=== PATIENT | female | born 1980 | race Caucasian/White ===

== ENCOUNTER → 2019-05-18 17:18 | Outpatient (CLI) | payer BC, SELFPAY ==
--- NOTE | ~2019-05-18 | MM_ITS ---
EXAMINATION: MM screening michelle BI w elisabeth HISTORY: Screening mammogram TECHNIQUE: Craniocaudal and mediolateral oblique 3-D tomosynthesis images were obtained and synthetic 2-D images were generated. CAD analysis was submitted and interpreted. COMPARISON: 12/13/2017, 10/19/2016, 09/13/2015 bilateral digital screening mammogram examinations BREAST PARENCHYMAL COMPOSITION: The breasts are heterogeneously dense, which may obscure small masses . FINDINGS: There is no evidence of suspicious mass, calcification, or architectural distortion to sugg est malignancy in either breast. There has been no suspicious interval change. IMPRESSION: 1. No mammographic evidence of malignancy. 2. Recommend routine screening mammography in one year. BI-RADS Category 1: Negative Reviewed, dictated and finalized at location A. RTISEMENT COMPOSITOR
== END ==
PROVIDERS: PCP Family Medicine; Visit Provider Family Medicine
DX: Z12.31 Encounter for screening mammogram for malignant neoplasm of breast (principal)
CPT/HCPCS: 77063; 77067

== ENCOUNTER → 2020-05-31 11:25 | Outpatient (CLI) | payer BC, SELFPAY ==
--- NOTE | ~2020-05-31 | MM_ITS ---
EXAMINATION: MM screening michelle BI w elisabeth HISTORY: Screening mammogram, family history of breast cancer in her mother. TECHNIQUE: Craniocaudal and mediolateral oblique 3-D tomosynthesis images were obtained and synthetic 2-D images were generated. CAD analysis was submitted and interpreted. COMPARISON: 03/17/2020, 12/13/2017, 10/17/2016 BREAST PARENCHYMAL COMPOSITION: The breasts are heterogeneously dense, which may obscure small masses . FINDINGS: RIGHT BREAST: There are indeterminate calcifications in the middle third of the upper, slightly outer breast. LEFT BREAST: There is a possible mass in the middle third of the outer breast 5 cm from the nipple. IMPRESSION: 1. Bilateral breast findings as described above. 2. Additional mammographic views and possible breast ultrasound are recommended. BI-RADS Category 0: Incomplete: Needs additional imaging evaluation. Reviewed, dictated and finalized at location A. DEVELOPER IMPRESSION: 1. Bilateral breast findings as described above. 2. Additional mammographic views and possible breast ultrasound are recommended . BI-RADS Category 0: Incomplete: Needs additional imaging evaluation.
== END ==
PROVIDERS: PCP Family Medicine; Visit Provider Family Medicine
DX: Z12.31 Encounter for screening mammogram for malignant neoplasm of breast (principal); R92.8 Other abnormal and inconclusive findings on diagnostic imaging of breast
CPT/HCPCS: 77063; 77067

== ENCOUNTER → 2020-06-22 09:26 | Outpatient (CLI) | payer BC, SELFPAY ==
--- NOTE | ~2020-06-22 | MMUS_ITS ---
EXAMINATION: MM diagnostic mammo BI, US breast LT complete HISTORY: Follow-up right breast calcifications and left breast asymmetry TECHNIQUE: Additional 3-D tomosynthesis images of the breasts were performed and synthetic 2-D images were generated. CAD analysis was submitted and interpreted. High resolution complete left breast ult rasound was performed. COMPARISON: 03/30/2021 BREAST PARENCHYMAL COMPOSITION: The breasts are heterogenously dense, which may obscure small masses. FINDINGS: MAMMOGRAPHIC FINDINGS: Right breast calcifications are likely benign and monomorphic, upper outer quadrant. There are no dis crete masses, calcifications or architectural distortion in the left breast. ULTRASOUND: Complete left breast ultrasound: At 9:00, 4 cm from the nipple, there is a 4 mm intramammary lymph no de. No other discrete mass identified. IMPRESSION: 1. Probable benign right breast calcifications. No evidence for malignancy in the left breast. 2. Recommend 6 month follow-up diagnostic right mammogram BI-RADS category 3, probably benign findings. Reviewed, dictated and finalized at location A. IMPRESSION: 1. Probable benign right breast calcifications. No evidence for malignancy in t he left breast. 2. Recommend 6 month follow-up diagnostic right mammogram BI-RADS category 3, probably benign findings.
== END ==
PROVIDERS: PCP Family Medicine; Visit Provider Nurse Practitioner
DX: R92.8 Other abnormal and inconclusive findings on diagnostic imaging of breast (principal)
CPT/HCPCS: 76641; 77066

== ENCOUNTER 2020-11-04 20:38 | Emergency (ER) | payer BC, SELFPAY ==
--- NOTE | ~2020-11-04 | XR_ITS ---
EXAMINATION: XR chest 2V DATE: 11/04/2020 21:24 INDICATION: Chest pain, tachycardia TECHNIQUE: PA and lateral views of the chest are obtained. COMPARISON: None available FINDINGS: The lungs are free of acute opacities. There is no pleural effusion or pneumothorax. The ca rdiomediastinal silhouette is normal. There is mild S-shaped curvature of the spine. IMPRESSION: 1. No acute cardiopulmonary abnormality. Reviewed, dictated and finalized at location A.
[2020-11-04 20:43] VITALS: BP 131/72; PULSE 77; RESP 16; TEMP 36.8; O2SAT 100
--- NOTE | 2020-11-04 20:46 | ECG_ITS ---
Measurements Intervals Sophia Rate: 75 P: 74 PA: 131 QRS: 75 QRSD: 83 T: 59 QT: 378 QTc: 425 Interpretive Statements SINUS RHYTHM INCOMPLETE RIGHT BUNDLE BRANCH BLOCK BORDERLINE ST ABNORMALITY- ANTERIOR LEADS BORDERLINE ECG Electronically Signed On 11-05-2020 7:05:13 CDT by Indio Holley D.O.
[2020-11-04 21:05] LABS: Basophils Absolute Auto 0.1 K/mm3 (0.0-0.1); Basophils Percent Auto 1.1 % (0.2-1.2); Eosinophils Absolute Auto 0.3 K/mm3 (0-0.3); Eosinophils Percent Auto 4.3 % (0-4.4); Hematocrit 41.4 % (37.0-47.0); Hemoglobin 13.5 g/dL (12.0-15.0); Immature Granulocyte Absolute 0.02 K/mm3 (0.00-0.031); Immature Granulocyte Percent A 0.3 % (0-0.5); Lymphocytes Absolute Auto 2.16 K/mm3 (0.9-3.2); Lymphocytes Percent Auto 32.9 % (18.3-44.2); Mean Corpuscular HGB Conc 32.6 g/dl (32-36); Mean Corpuscular Volume 88.8 fl (80-100); Mean Platelet Volume 10.8 fl (7.4-10.4); Monocytes Absolute Auto 0.5 K/mm3 (0.1-0.6); Monocytes Percent Auto 6.8 % (2.6-8.5); Neutrophils Absolute Auto 3.6 K/mm3 (1.3-6.7); Neutrophils Percent Auto 54.6 % (45.5-73.1); Platelet Count Result 233 k/mm3 (150-375); Red Blood Count 4.66 M/mm3 (4.2-5.4); Red Cell Distribution Width 12.3 % (11.5-14.5); White Blood Count 6.6 K/mm3 (4.5-10.0)
[2020-11-04 21:14] LABS: INR 0.9; Prothrombin Time 11.8 Seconds (11.1-14.7)
[2020-11-04 21:15] LABS: Anion Gap 9 mmol/L (8-16); Blood Urea Nitrogen 11 mg/dL (7-17); Carbon Dioxide 24 mmol/L (22-30); Chloride 108 mmol/L (98-107); Estimated CRCL calculation 88 ml/min; Estimated Glomerular Filt Rate > 60; Glucose 117 mg/dL (65-110); Partial Thromboplastin Time 32.7 SECONDS (22.3-36.8); Potassium 3.6 mmol/L (3.4-5.0); Sodium 141 mmol/L (137-145)
[2020-11-04 21:27] LABS: Troponin I < 0.012 ng/mL (0.000-0.034)
[2020-11-04 22:31] VITALS: BP 122/82; PULSE 81; RESP 17; O2SAT 96
--- NOTE | 2020-11-04 22:32 | ED.CHESTPAIN ---
HPI - Chest Pain History of Present Illness HPI narrative: 40 yo female w/ h/o aortic valvular insufficiency, psoriasis presents to the ED for chest tightness. About 30 minutes prior to arrival she noted some mild chest tightness, SOB. Her heart then began to race and she devloped mild dizziness. Symptoms have mostly passed at the time of my evlauation, but she says that she still feels a little off. No prior episodes. Related Data Home Medications Medication Instructions Recorded Confirmed clobetasol 0.05 % topical cream 1 applic TOPICAL DAILY PRN 09/07/20 09/13/20 [id number]-iron 18 tablet PO 09/07/20 09/13/20 mg-FA 400 mcg-vit K 25 mcg tablet Allergies Allergy/AdvReac Type Severity Reaction Status Date / Time No Known Allergies Allergy Verified 11/04/20 20:43 Review of Systems Review of Systems: All systems reviewed & are unremarkable except as noted in HPI and below Constitutional: Constitutional: Denies fever(s) Eyes: Eyes: Reports no additional eye complaints ENT: Reports dizziness Cardiovascular: Cardiovascular: Reports as per HPI Respiratory: Respiratory: Reports as per HPI Gastrointestinal: Gastrointestinal: Denies nausea and Denies vomiting Genitourinary: Genitourinary: Reports no additional female genitourinary complaints Musculoskeletal: Musculoskeletal: Denies back pain Neurologic: Denies confusion, Reports dizziness and Denies weakness [facility] Past Medical History Medical History Aortic valve insufficiency Interstitial cystitis Psoriasis Vaginal delivery x1 Family History Family History Grandparent Diabetes mellitus Family history of malignant neoplasm of breast Mother Family history of malignant neoplasm of cervix Family history of malignant neoplasm of breast in first degree relative Social History Social History Smoking status: Former smoker Smoking end date: 04/07/02 Alcohol intake: current Substance use: unknown Gender identity (if verbalized by the patient): Female Exam Const: General: healthy appearing, no acute distress and alert Orientation/consciousness: patient oriented x3 HENMT: Head: normal to inspection Neck: Neck: normal visual inspection Chest: Chest palpation & inspection: no tenderness Resp: Effort & Inspection: normal respiratory effort Auscultation: clear to auscultation bilaterally, no rales, no rhonchi and no wheezes Cardio: Jugular venous distension: no JVD Rate: regular rate Rhythm: regular rhythm Heart sounds: no murmurs GI: Inspection: non-distended GI Palp: Yes Soft to palpation and No Tenderness to palpation present (GI) Skin: General skin exam: normal color Neuro: General: patient oriented x3 and moves all extremities Speech: normal speech Extrem: General: no edema Psych: Appearance: well kempt Affect: normal affect Course Vital Signs Vital signs: Vital Signs Temperature 36.8 C 11/04/20 20:43 Pulse Rate 77 11/04/20 20:43 Respiratory Rate 16 11/04/20 20:43 Blood Pressure 131/72 11/04/20 20:43 Pulse Oximetry 100 11/04/20 20:43 Temperature 36.8 C 11/04/20 20:43 Pulse Rate 88 11/05/20 01:12 Respiratory Rate 18 11/05/20 01:12 Blood Pressure 124/71 11/05/20 01:12 Pulse Oximetry 99 11/05/20 01:12 MDM - Chest Pain MDM Narrative Medical decision making narrative: She did not have any significant pain. What she did have was more pleuritic than cardiac in nature. No acute changes on EKG. troponin negative. X-ray negative. Heart score 0. Medical Records Data Attestation: I reviewed the patient's medical records. Lab Data Attestation: I reviewed the patient's lab results. Result diagrams: 11/04/20 21:00 11/04/20 21:00 Labs: Lab Results 11/04/20 11/04/20
[2020-11-04] MEDS: ONDANSETRON HCL ODT 4 MG TABLET PO (22:37)
[2020-11-04] MEDS: PROMETHAZINE HCL 25 MG/ML AMPUL IM (23:35)
[2020-11-05 00:10] VITALS: BP 117/71; PULSE 69; RESP 17; O2SAT 97
[2020-11-05 01:12] VITALS: BP 124/71; PULSE 88; RESP 18; O2SAT 99
== END 2020-11-05 01:12 | disposition home or self-care (01) ==
PROVIDERS: Emergency Medicine; Emergency Provider Emergency Medicine; PCP Family Medicine
DX: R07.89 Other chest pain (principal); R00.2 Palpitations; I35.1 Nonrheumatic aortic (valve) insufficiency; L40.9 Psoriasis, unspecified; Z87.891 Personal history of nicotine dependence; I45.10 Unspecified right bundle-branch block; R94.31 Abnormal electrocardiogram [ECG] [EKG]
CPT/HCPCS: 36415; 71046; 80048; 84484; 85025; 85610; 85730; 93005; 96372; 99284; A9270; J2550

== ENCOUNTER → 2021-01-16 14:27 | Outpatient (CLI) | payer BC, SELFPAY ==
--- NOTE | ~2021-01-16 | MM_ITS ---
EXAMINATION: MM diagnostic michelle RT w elisabeth HISTORY: Follow-up right breast calcifications TECHNIQUE: Additional 3-D tomosynthesis images of the right breast were performed and synthetic 2-D i mages were generated. CAD analysis was submitted and interpreted. COMPARISON: Comparison to multiple prior studies sequentially, with oldest reviewed study dated 11/2015. BREAST PARENCHYMAL COMPOSITION: The breasts are heterogenously dense, which may obscure small masses. FINDINGS: There is a cluster of calcifications in the upper outer quadrant of the right breast which are likely benign. No significant interval change. There are no suspicious masses or architectural di stortion. IMPRESSION: 1. Stable likely benign right breast calcifications, upper outer quadrant. 2. Recommend 6 month follow-up diagnostic mammogram. BI-RADS category 3, probably benign findings. Reviewed, dictated and finalized at location A.
== END ==
PROVIDERS: PCP Family Medicine; Visit Provider Family Medicine
DX: R92.1 Mammographic calcification found on diagnostic imaging of breast (principal); R92.8 Other abnormal and inconclusive findings on diagnostic imaging of breast
CPT/HCPCS: 77061; 77065; G0279

== ENCOUNTER → 2021-07-26 08:29 | Outpatient (CLI) | payer BC, SELFPAY ==
--- NOTE | ~2021-07-26 | MM_ITS ---
EXAMINATION: MM diagnostic michelle BI w elisabeth HISTORY: Right breast calcifications TECHNIQUE: ML, MLO and craniocaudal 3-D tomosynthesis images of both breasts were performed and synth etic 2-D images were generated. CAD analysis was submitted and interpreted. COMPARISON: 01/16/2021 right diagnostic mammogram 06/22/2020 bilateral diagnostic mammogram and complete left breast ultrasound 06/24/2020, , 12/13/2017bilateral screening mammogram examinations BREAST PARENCHYMAL COMPOSITION: The breasts are heterogeneously dense, which may obscure small masses . FINDINGS: No suspicious mass or architectural distortion, malignant calcification, skin thickening or retraction or significant new or developing density is detected. Minimal benign calcification of ea ch breast. IMPRESSION: 1. No mammographic evidence of malignancy 2. Routine annual mammographic screening is recommended. BI-RADS Category 1: Negative Reviewed, dictated and finalized at location A.
== END ==
PROVIDERS: PCP Family Medicine; Visit Provider Nurse Practitioner
DX: R92.1 Mammographic calcification found on diagnostic imaging of breast (principal)
CPT/HCPCS: 77062; 77066; G0279

== ENCOUNTER → 2023-01-24 12:23 | Outpatient (CLI) | payer BC, SELFPAY ==
--- NOTE | ~2023-01-24 | MM_ITS ---
EXAMINATION: MM screening michelle BI w elisabeth HISTORY: Screening TECHNIQUE: Craniocaudal and mediolateral oblique 3-D tomosynthesis images were obtained and synthetic 2-D images were generated. CAD analysis was submitted and interpreted. COMPARISON: Comparison to multiple prior studies sequentially, with oldest reviewed study dated 11/2017. BREAST PARENCHYMAL COMPOSITION: The breasts are heterogeneously dense, which may obscure small masses FINDINGS: There is no evidence of suspicious mass, calcification, or architectural distortion to sugg est malignancy in either breast. There has been no suspicious interval change. IMPRESSION: 1. No mammographic evidence of malignancy. 2. Recommend routine screening mammography in one year. BI-RADS Category 1: Negative Reviewed, dictated and finalized at location A.
== END ==
PROVIDERS: PCP Family Medicine; Visit Provider Obstetrics & Gynecology
DX: Z12.31 Encounter for screening mammogram for malignant neoplasm of breast (principal)
CPT/HCPCS: 77063; 77067

== ENCOUNTER → 2023-03-25 08:19 | Outpatient (CLI) | payer BC, SELFPAY ==
--- NOTE | ~2023-03-25 | MMUS_ITS ---
EXAMINATION: MM diagnostic michelle RT w elisabeth, US breast RT limited HISTORY: Recent lump in the right breast at 12:00 near nipple, which patient reports has diminished i n size. TECHNIQUE: Additional 3-D tomosynthesis images of the right breast were performed and synthetic 2-D i mages were generated. Rotated lateral craniocaudal view. CAD analysis was submitted and interpreted. High resolution targeted 12:00 subareolar breast ultrasound was performed. COMPARISON: 01/24/2023, 05/27/2020, 05/18/2019 bilateral screening mammogram examinations bilateral scr eening mammogram BREAST PARENCHYMAL COMPOSITION: The breasts are heterogeneously dense, which may obscure small masses . FINDINGS: MAMMOGRAPHIC FINDINGS: No suspicious mass or architectural distortion, malignant calcification, skin thickening or retractio n or significant new or developing density is detected. ULTRASOUND: No suspicious mass or shadowing or other significant sonographic abnormality is detected in the 12:00 subareolar area at the area of clinical complaint. IMPRESSION: 1. No evidence of malignancy 2. Routine annual mammographic screening is recommended BI-RADS Category 1: Negative Reviewed, dictated and finalized at location A. 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 No evidence of malignancy 2. Routine annual mammographic screening is recommended BI-RADS Category 1: Negative
== END ==
PROVIDERS: PCP Obstetrics & Gynecology; Visit Provider Registered Nurse
DX: N63.15 Unspecified lump in the right breast, overlapping quadrants (principal)
CPT/HCPCS: 76642; 77061; 77065; G0279

== ENCOUNTER 2024-01-27 12:29 | Outpatient (CLI) | payer BC, SELFPAY ==
--- NOTE | ~2024-01-27 | MM_ITS ---
EXAMINATION: MM screening michelle BI w elisabeth HISTORY: Screening TECHNIQUE: Craniocaudal and mediolateral oblique 3-D tomosynthesis images were obtained and synthetic 2-D images were generated. CAD analysis was submitted and interpreted. COMPARISON: No prior mammogram is available for comparison at this institution. BREAST PARENCHYMAL COMPOSITION: Dense: The breasts are heterogeneously dense, which may obscure small masses FINDINGS: Right breast asymmetry in the outer aspect of the right breast on CC view is stable compare d with prior examination. There is no evidence of suspicious mass, calcification, or architectural di stortion to suggest malignancy in either breast. There has been no suspicious interval change. IMPRESSION: 1. No mammographic evidence of malignancy. 2. Recommend routine screening mammography in one year. BI-RADS Category 2: Benign finding(s). Reviewed, dictated and finalized at location B.
== END 2024-01-27 12:30 | disposition home or self-care (01) ==
LOC: MICIMG 12:30
PROVIDERS: PCP Family Medicine; Visit Provider Obstetrics & Gynecology
DX: Z12.31 Encounter for screening mammogram for malignant neoplasm of breast (principal)
CPT/HCPCS: 77063; 77067

== ENCOUNTER 2025-02-02 09:04 | Outpatient (CLI) | payer BC, SELFPAY ==
--- NOTE | ~2025-02-02 | MM_ITS ---
EXAMINATION: MM screening michelle BI w elisabeth HISTORY: Screening TECHNIQUE: Craniocaudal and mediolateral oblique 3-D tomosynthesis images were obtained and synthetic 2-D images were generated. CAD analysis was submitted and interpreted. COMPARISON: Comparison to multiple prior studies sequentially, with oldest reviewed study dated 06/22/2020. BREAST PARENCHYMAL COMPOSITION: Dense: The breasts are heterogeneously dense, which may obscure small masses FINDINGS: There is no evidence of suspicious mass, calcification, or architectural distortion to suggest malignancy in either breast. There has been no suspicious interval change. IMPRESSION: 1. No mammographic evidence of malignancy. 2. Recommend routine screening mammography in one year. BI-RADS Category 1: Negative Reviewed, dictated and finalized at location B.
--- OUTSIDE RECORDS SUMMARY | 2025-02-02 09:48 | XMS_ITS | Clinical Summary ---
Author Organization [facility] Address [address] [place] [address] Care Team Providers Care Data Integration Analyst Name Role Phone Christiano Yost MD Primary Care Provider [phone] Allergies Active Allergy Reactions Criticality Noted Date Comments Sulfamethoxazole-Trimethoprim Nausea only Low 03/12 Medications clobetasol (TEMOVATE) 0.05 % ointment [address] (NexIUM) 40 mg capsule Take 1 capsule (40 mg total) by mouth Active Vtama 1 % cream Apply topically daily 3 Active phenazopyridine (PYRIDIUM) 200 mg tabletIndicatio ns:Interstitial cystitis Take 1 tablet (200 mg total) by mouth 3 (three) times a day as needed for bladder spasms 21 tablet 2 4 Active estradioL (ESTRACE) 0.01 % (0.1 mg/gram) vaginal creamIndication s:Interstitial cystitis,Pelvic pain Apply one (1) gram in the vagina two to three (2-3) nights per week. 42.5 g 2 5 Active estradioL (ESTRACE) 0.01 % (0.1 mg/gram) vaginal creamIndication s:Interstitial cystitis,Pelvic pain Apply one (1) gram in the vagina two to three (2-3) nights per week. 42.5 g 2 4 01/18/20 25 Discontinu ed(Reorder ) Active Problems Problem Noted Date Diagnosed Date Hypertrophy of tonsils 06/18/2018 Chronic tonsillitis 07/19/2016 Aortic valve regurgitation 04/23/2016 Mitral valve insufficiency 04/20/2015 Palpitations 04/20/2015 Increased frequency of urination 05/24/2014 Urinary urgency 05/24/2014 Psoriasis 10/29/2010 Overview (07/18/2017): Description: Psoriasis Encounters Date Type Department Care Team Description 01/17/2025 Orders Only [facility] ([facility]) - [facility] Medicine Urology [address] [place] [address] [place] [address] Bisi Keyes NP Interstitial cystitis; Pelvic pain from Last 3 Months Medical History Medical History Date Comments Cardiac arrhythmia Sinus arrhyth edilson - (Added by TW Conv) Rash and other nonspecific skin eruption Skin rash - (Added by TW Conv) Personal history of diseases of skin or subcutaneous tissue History of psoriasis - (Adde d by TW Conv) Chronic interstitial cystiti s without hematuria Interstitial cystitis - (Add ed by TW Conv) Family History Medical History Relation Name Comments Breast cancer Mother Family history of malignant neoplasm of breast - (Added by TW Conv) Relation Name Status Comments Mother Social History Tobacco Use Types Packs/Day Years Used Date Smoking Tobacco: Former Comments Unknown Sex and Gender Information Value Date Recorded Sex Assigned at Not on file Legal Sex Female 5:44 AM ELECTRIC CELL TENDER Gender Identity Not on file Sexual Orientation Not on file Obstetrics History Last Filed Vital Signs Vital Sign Reading Time Taken Comments Blood Pressure 124/82 04/09/2023 1:59 PM ELECTRIC CELL TENDER Pulse 71 04/09/2023 1:59 PM ELECTRIC CELL TENDER Temperature 36.8 C (98.2 F) 04/09/2023 1:59 PM ELECTRIC CELL TENDER Respiratory Rate 18 04/09/2023 1:59 PM ELECTRIC CELL TENDER Oxygen Saturation 99% 04/09/2023 1:59 PM ELECTRIC CELL TENDER Inhaled Oxygen Concentration - - Weight 74.8 kg (165 lb) 04/09/2023 1:59 PM ELECTRIC CELL TENDER Height 177.8 cm (5' 10) 04/09/2023 1:59 PM ELECTRIC CELL TENDER Body Mass Index 23.68 04/09/2023 1:59 PM ELECTRIC CELL TENDER Plan of Treatment Health Maintenance Due Date Last Done Comments Breast Cancer Screening-Mammogram 1978 Cervical Cancer Screening 1978 Colon Cancer Screening-Colonoscopy 1978 Depression Screening 1978 Hepatitis C Screening 1978 DTaP/Tdap/Td Vaccine (1 - Tdap) 1989 Hepatitis B Screening 02/03/1996 Regular Well Visit/Exam 18-64 02/03/1996 Covid-19 Vaccine ( season) 2024 04/12/2021, 06/28/2020, 05/31/2020 Influenza Vaccine (#1) 2024 , 02/20/2020, 01/03/2017, Additional history exists HPV Vaccines Aged Out No longer eligi ble based on patient's age to complete this topic Pneumococcal vaccine <65 Aged Out No longer eligible based on patient's age to complete this topic Insurance [facility] Care Teams Data Integration Analyst Relationship Specialty Start Date End Date Christiano Yost MD PCP - General 10/24/16
== END 2025-02-02 09:05 | disposition home or self-care (01) ==
LOC: CHSIMG 09:05
PROVIDERS: PCP Family Medicine; Visit Provider Obstetrics & Gynecology
DX: Z12.31 Encounter for screening mammogram for malignant neoplasm of breast (principal)
CPT/HCPCS: 77063; 77067